=== PATIENT | female | born 1980 | race Caucasian/White ===

== ENCOUNTER 2016-11-13 21:08 | Emergency (ER) | payer OTHER ==
[2016-11-13 21:41] VITALS: BP 102/69; PULSE 87; TEMP 98.8; BMI 26.6
--- NOTE | 2016-11-13 21:42 | PDOC ---
Rapid Medical Evaluation Chief Complaint: Sore Throat Time Seen by Provider: 11/13/16 21:37 Medical Evaluation: Allergies Allergy/AdvReac Type Severity Reaction Status Date / Time Penicillins Allergy Severe Hives Verified 11/13/16 21:37 diphenhydramine HCl Allergy Rash Verified 11/13/16 21:37 [From Benadryl] 11/13/16 21:38 I have performed a brief in-person evaluation of this patient. The patient presents with a chief complaint of: throat pain, fever, left ovary pain, hx of cyst with surgery (twisted around ovary) No menses since september, Pertinent physical exam findings: vss, + erythema to throat, hx of thyroidectomy I have ordered the following: rapid strep, us , hcg urine, The patient will proceed to fast track for further evaluation.
[2016-11-13 22:00] LABS: URINE APPEARANCE CLEAR; URINE BILIRUBIN NEGATIVE (NEGATIVE); URINE BLOOD NEGATIVE (NEGATIVE); URINE COLOR LTYELLOW; URINE GLUCOSE (UA) NEGATIVE (NEGATIVE); URINE KETONE NEGATIVE (NEGATIVE); URINE LEUK ESTERASE NEGATIVE (NEGATIVE); URINE NITRITE NEGATIVE (NEGATIVE); URINE PROTEIN NEGATIVE (NEGATIVE); URINE UROBILINOGEN NEGATIVE E.U./dl (0.2-1.0)
[2016-11-13] MEDS ORDERED: AZITHROMYCIN 250 MG TABLET (FP) PO STA (22:41)
[2016-11-13] MEDS ORDERED: AZITHROMYCIN 250 MG TABLET (FP) ONE (22:52)
--- NOTE | 2016-11-13 22:52 | PDOC ---
History of Present Illness - General History Source: Patient Exam Limitations: No Limitations - History of Present Illness Initial Comments: 11/13/16 22:52 The patient is a 36 year old female with significant past medical history of hypothyroidism s/p thyroidectomy, ovarian cyst s/p surgically removed, and left torsion s/p repair who presents to the ED with several days of sore throat. Patient reports tactile fever. She also has complaints of left lower quadrant pain for the past 2 weeks. She denies vaginal bleeding or discharge. Patient also denies nausea, vomiting, or diarrhea. The patient denies chills, cough, SOB, chest pain, and palpitations. The patient denies dysuria, hematuria, urgency, and frequency. Allergies: diphenhydramine HCl, penicillin Social History: No alcohol, tobacco, or drug use reported. Past Surgical History: hypothyroidism s/p thyroidectomy, ovarian cyst s/p surgically removed, and left torsion s/p repair PCP: Dr. Kisha Girard <Lyla Live - Last Filed: 11/13/16 22:52> - General History Source: Patient <Carlos Avila - Last Filed: 11/13/16 23:39> - General Chief Complaint: Pain Stated Complaint: THROAT PAIN,PAIN LEFT OVARIES Time Seen by Provider: 11/13/16 21:37 Past History <Lyla Live - Last Filed: 11/13/16 22:52> - Past Medical History Anemia: No Asthma: No Cancer: No Cardiac Disorders: No CVA: No COPD: No CHF: No Dementia: No Diabetes: No GI Disorders: No Disorders: No HTN: No Hypercholesterolemia: No Liver Disease: No Psychiatric Problems: Yes (DEPRESSION,anxiety) Seizures: No Thyroid Disease: Yes - Surgical History Abdominal Surgery: No Appendectomy: No Cardiac Surgery: No Cholecystectomy: No Lung Surgery: No Neurologic Surgery: No Orthopedic Surgery: No - Immunization History Immunization Up to Date: Yes - Psycho/Social/Smoking Cessation Hx Anxiety: Yes Suicidal Ideation: No Smoking Status: No Smoking History: Never smoked Have you smoked in the past 12 months: No Number of Cigarettes Smoked Daily: 0 Information on smoking cessation initiated: No Hx Alcohol Use: No Drug/Substance Use Hx: No Substance Use Type: None <Carlos Avila - Last Filed: 11/13/16 23:39> - Past Medical History Allergies/Adverse Reactions: Allergies Allergy/AdvReac Type Severity Reaction Status Date / Time Penicillins Allergy Severe Hives Verified 11/13/16 21:37 diphenhydramine HCl Allergy Rash Verified 11/13/16 21:37 [From Benadryl] Home Medications: Ambulatory Orders Quetiapine Fumarate [Seroquel -] 25 mg PO HS 12/24/14 Levothyroxine [Synthroid -] 75 mcg PO DAILY 05/09/15 Hydromorphone HCl [Dilaudid] 2 mg PO QID PRN #20 tablet 05/11/15 Levothyroxine [Synthroid -] 100 mcg PO DAILY #30 tablet 05/11/15 Azithromycin [Zithromax -] 250 mg PO UTDICT #6 tab 11/13/16 Ibuprofen [Motrin] 600 mg PO TID #30 tablet 11/13/16 Review of Systems - Review of Systems Able to Perform ROS?: Yes Comments:: 11/13/16 22:52 CONSTITUTIONAL: +tactile fever Absent: no chills, no fatigue EYES: Absent: visual changes ENT: +sore throat Absent: ear pain CARDIOVASCULAR: Absent: chest pain, no palpitations RESPIRATORY: Absent: cough, no SOB GI: +left lower quadrant pain Absent: no nausea, no vomiting, no constipation, no diarrhea GENITOURINARY: Absent: dysuria, no frequency, no hematuria MUSKULOSKELETAL: Absent: back pain, no arthralgia, no myalgia SKIN: Absent: rash NEURO: Absent: headache <Bharrat,Lyla - Last Filed: 11/13/16 22:52> *Physical Exam - Vital Signs Last Vital Signs Temp Pulse Resp BP Pulse Ox 98.8 F 87 20 102/69 97 11/13/16 21:37 11/13/16 21:37 11/13/16 21:37 11/13/16 21:37 11/13/16 21:37 - Physical Exam Comments: 11/13/16 22:52 GENERAL: Well-appearing, well-nourished. No apparent distress. HEENT: Normocephalic, atraumatic. PERRL, EOM intact. Erythematous throat, no exudates or edema. CARDIOVASCULAR: Normal S1, S2. Regular rate and rhythm. PULMONARY: Clear to auscultation bilaterally. ABDOMEN: Soft, non-distended, left lower quadrant tenderness. No rebound or guarding. EXTREMITIES: Normal ROM in all four extremities. No gross deformities. SKIN: Warm, dry. No rash NEUROLOGICAL: No focal neurological deficits. <Lyla Live - Last Filed: 11/13/16 22:52> - Vital Signs Last Vital Signs Temp Pulse Resp BP Pulse Ox 98.8 F 87 20 102/69 97 11/13/16 21:37 11/13/16 21:37 11/13/16 21:37 11/13/16 21:37 11/13/16 21:37 <Carlos Avila - Last Filed: 11/13/16 23:39> ED Treatment Course - ADDITIONAL ORDERS Additional order review: Laboratory Results 11/13/16 21:45 Urine Color Ltyellow Urine Appearance Clear Urine pH 6.0 Ur Specific [place] 1.026 Urine Protein Negative Urine Glucose (UA) Negative Urine Ketones Negative Urine Blood Negative Urine Nitrite Negative Urine Bilirubin Negative Urine Urobilinogen Negative Ur Leukocyte Esterase Negative Urine HCG, Qual Negative 11/13/16 21:45 Group A Strep Rapid Antigen - Final Throat <Lyla Live - Last Filed: 11/13/16 22:52> - ADDITIONAL ORDERS Additional order review: Laboratory Results 11/13/16 21:45 Urine Color Ltyellow Urine Appearance Clear Urine pH 6.0 Ur Specific [place] 1.026 Urine Protein Negative Urine Glucose (UA) Negative Urine Ketones Negative Urine Blood Negative Urine Nitrite Negative Urine Bilirubin Negative Urine Urobilinogen Negative Ur Leukocyte Esterase Negative Urine HCG, Qual Negative 11/13/16 21:45 Group A Strep Rapid Antigen - Final Throat - RADIOLOGY Radiology Studies Ordered: Category Date Time Status TRANSVAGINAL ULTRASOUND US [US] Stat Ultrasound 11/13/16 22:37 Ordered <Carlos Avila - Last Filed: 11/13/16 23:39> Medical Decision Making - Medical Decision Making 11/13/16 23:39 Dr. Avila: The scribe's documentation has been prepared under my direction and personally reviewed by me in its entirery. I confirm that the note above accurately reflects all work, treatment, procedures, and medical decision making performed by me. <Carlos Avila - Last Filed: 11/13/16 23:39> *DC/Admit/Observation/Transfer - Attestations Scribe Attestion: 11/13/16 22:53 Documentation prepared by Lyla Live, acting as medical billing clerk for Carlos Avila MD <Lyla Live - Last Filed: 11/13/16 22:52> - Discharge Dispostion Admit: No <Carlos Avila - Last Filed: 11/13/16 23:39> Diagnosis at time of Disposition: Strep pharyngitis, Pain in pelvis - Discharge Dispostion Disposition: HOME Condition at time of disposition: Stable - Referrals Referrals: Kisha Girard MD [Primary Care Provider] - Eduardo Ortiz MD [Staff Physician] - - Patient Instructions Printed Discharge Instructions: DI for Strep Throat, DI for Pelvic Pain
== END 2016-11-13 23:46 | disposition home or self-care (01) ==
LOC: JERFT 21:08 → JER 21:08
DX: J02.0 Streptococcal pharyngitis (principal); R10.2 Pelvic and perineal pain; F41.8 Other specified anxiety disorders; E07.9 Disorder of thyroid, unspecified
CPT/HCPCS: 76830-TC; 81003; 84703; 87070; 87430; 99282-25

== ENCOUNTER 2018-05-31 18:31 | Emergency (ER) | payer OTHER ==
[2018-05-31 18:48] VITALS: BP 101/55; PULSE 78; TEMP 98.7; BMI 27.8
[2018-05-31 19:57] LABS: URINE APPEARANCE CLEAR; URINE BILIRUBIN NEGATIVE (<2.0 mg/dL); URINE COLOR LTYELLOW; URINE GLUCOSE (UA) NEGATIVE (NEGATIVE); URINE KETONE NEGATIVE (NEGATIVE); URINE LEUK ESTERASE NEGATIVE (NEGATIVE); URINE NITRITE NEGATIVE (NEGATIVE); URINE PROTEIN NEGATIVE (NEGATIVE); URINE UROBILINOGEN NEGATIVE mg/dL (0.2-1.0)
--- NOTE | 2018-05-31 20:02 | PDOC ---
Attending Attestation - Physicial Exam PE: 05/31/18 20:53 GENERAL: The patient is in no acute distress. HEAD: Normal with no signs of trauma. EYES: PERRLA, EOMI, sclera anicteric, conjunctiva clear. ENT: Ears normal, nares patent, oropharynx clear without exudates. Moist mucous membranes. NECK: Normal range of motion, supple without lymphadenopathy, JVD, or masses. LUNGS: Breath sounds equal, clear to auscultation bilaterally. No wheezes, and no crackles. HEART:Regular rate and rhythm, normal S1 and S2 without murmur, rub or gallop. ABDOMEN:(+) Lower abdominal tenderness to the L. side. Soft, normoactive bowel sounds. No guarding, no rebound. No masses palpable. EXTREMITIES: Normal range of motion, no edema. No clubbing or cyanosis. No erythema, or tenderness. NEUROLOGICAL: Cranial nerves II through XII grossly intact. Normal speech. No focal neurological deficits. MUSCULOSKELETAL: Back non-tender to palpation, no CVA tenderness SKIN: Warm, Dry, normal turgor, no rashes or lesions noted. - Medical Decision Making 05/31/18 20:54 Documentation prepared by Ya Danielson, acting as medical and health services manager for Cheyanne Simon MD. <Ya Danielson - Last Filed: 05/31/18 20:53> - Resident Resident Name: Axel Irizarry - ED Attending Attestation I have performed the following: I have examined & evaluated the patient, The case was reviewed & discussed with the resident, I agree w/resident's findings & plan, Exceptions are as noted - HPI HPI: 05/31/18 20:10 Ms Pendleton is a 37 year old female h/o hypothyroidism s/p thyroidectomy, ovarian cyst s/p removal 8 years ago , currently presenting to the ER with a complaint of left lower abdominal pain which radiates to the left flank No fevers or chills Patient denies nausea, vomit, diarrhea and constipation. Denies dysuria, frequency, urgency and hematuria. - Medical Decision Making 05/31/18 20:16 37 yo F 1st trimester abdominal pain No vaginal bleeding DD: Round ligament pain, ovarian cyst rupture/torsion, unlikely diverticulitis given no GI symptoms Will do labs Will do official US Re assess Labs wnl US IUP (+) FHR Will discharge to home Follow up with OB Clinical Impression: abdominal pain in , initial presentation <Cheyanne Simon - Last Filed: 06/02/18 07:56>
--- NOTE | 2018-05-31 20:51 | PDOC ---
History of Present Illness - General Chief Complaint: Pain, Acute Stated Complaint: STOMACH PAIN/12 WKS Time Seen by Provider: 05/31/18 18:52 History Source: Patient, Old Records Exam Limitations: No Limitations - History of Present Illness Initial Comments: 37 y/o female at 11 weeks 6 days (per LMP) presenting to [facility] ER via private auto complaining of lower left sided abdominal pain since last evening. Pain started at left flank and migrated to suprapubic area while decreasing in intensity. Denies radiation to back. Denies urinary symptoms or vaginal discharge. Does not believe she is experiencing contractions. No history of nephrolithiasis. H/o left ovarian cyst, diagnosed via ex-lap. Pt is concerned about the health of her as she experienced previous spontaneous abortions earlier than 20 weeks and intrauterine demise. Additionally, she is s/p LEEP this past February and was warned she may require a cerclage. 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) - Thyroid cyst s/p Thyroidectomy (2014) - Spontaneous and intrauterine demise Past History - Past Medical History Allergies/Adverse Reactions: Allergies Allergy/AdvReac Type Severity Reaction Status Date / Time Penicillins Allergy Severe Hives Verified 05/31/18 18:43 diphenhydramine HCl Allergy Rash Verified 05/31/18 18:43 [From Benadryl] Home Medications: Ambulatory Orders Levothyroxine [Synthroid -] 75 mcg PO DAILY 05/09/15 Vit Calc,Iron,Folic [ Vitamins] 1 each PO DAILY #30 tablet Anemia: No Asthma: No Cancer: No Cardiac Disorders: No CVA: No COPD: No CHF: No DVT: No Dementia: No Diabetes: No GI Disorders: No Disorders: No HTN: No Hypercholesterolemia: No Liver Disease: No Psychiatric Problems: Yes (DEPRESSION,anxiety) Seizures: No Thyroid Disease: Yes Other medical history: lmp 03/09/18 - Surgical History Abdominal Surgery: No Appendectomy: No Cardiac Surgery: No Cholecystectomy: No Lung Surgery: No Neurologic Surgery: No Orthopedic Surgery: No - Reproductive History Is Patient Now?: Yes (#): 6 Para: 0 Spontaneous : 5 - Immunization History Immunization Up to Date: Yes - Suicide/Smoking/Psychosocial Hx Smoking Status: No Smoking History: Never smoked Have you smoked in the past 12 months: No Number of Cigarettes Smoked Daily: 0 Hx Alcohol Use: No Drug/Substance Use Hx: No Substance Use Type: None Review of Systems - Review of Systems Able to Perform ROS?: Yes Comments:: In addition to that documented in the HPI above, the additional ROS was obtained : Constitutional: Denies fevers or chills Eyes: Denies vision changes ENMT: Denies sore throat CV: Denies chest pain Resp: Denies SOB GI: Denies vomiting or diarrhea : Denies painful urination MSK: Denies recent trauma Skin: Denies new rashes Neuro: Denies new numbness or tingling or weakness Endocrine: Denies polyuria Heme: Denies bleeding disorders *Physical Exam - Vital Signs Last Vital Signs Temp Pulse Resp BP Pulse Ox 98.7 F 78 16 101/55 L 99 05/31/18 18:44 05/31/18 18:44 05/31/18 18:44 05/31/18 18:44 05/31/18 18:44 - Physical Exam Comments: Constitutional: Well-developed, well-nourished female in no acute distress or obvious discomfort. Found sitting upright on hospital bed. Alert and oriented x4. Answered all questions appropriately and completely. Speech was non-labored , non-pressured. HEENT: Normocephalic. No obvious external signs of trauma. Hearing grossly normal. No nasal discharge. Neck is supple, trachea is midline. Cardiovascular: Regular rate and regular rhythm. No murmur, rubs, clicks, or gallops. Peripheral pulses: Radial pulses full. Respiratory: Breathing unlabored. Equal chest rise and fall. Clear to auscultation bilaterally. No stridor, no wheezing, no rhonchi. Gastrointestinal: gravid abdomen is tender in suprapubic region with grimace but no rebound, guarding, or withdrawal; otherwise soft and non-distended. No pulsatile masses. No overlying skin lesions or obvious signs of trauma. Neuro: Alert and oriented. Moving all four extremities spontaneously. Gait normal; observed walking unassisted through the department without distress. Skin: Warm, dry, and intact. No bruising, rashes, or other lesions. No palpable nodules. Lymphatics: No cervical, supraclavicular, epitrochlear or inguinal nodes palpated. : No R or L CVA tenderness. Psych: Affect: appropriate. Mood: normal. Female Pelvic: External genitalia unremarkable. Speculum exam with normal appearing whitish vaginal discharge. Vaginal wall mucosa is unremarkable. Cervix visualized and is unremarkable (closed in appearance without any protruding material). Bimanual exam revealed L adnexal tenderness without cervical motion tenderness or any masses appreciated. OS closed. RN chaperoned exam. ED Treatment Course - ADDITIONAL ORDERS Additional order review: Laboratory Results 05/31/18 05/31/18 19:30 19:30 Urine Color Ltyellow Urine Appearance Clear Urine pH 5.0 D Ur Specific [place] 1.023 Urine Protein Negative Urine Glucose (UA) Negative Urine Ketones Negative Urine Blood Negative Urine Nitrite Negative Urine Bilirubin Negative Urine Urobilinogen Negative Ur Leukocyte Esterase Negative Urine HCG, Qual Positive - RADIOLOGY Radiology Studies Ordered: Category Date Time Status <14WKS US [US] Stat Ultrasound 05/31/18 19:34 Ordered Radiograph Interpretation: U/S Ugo Aiken MD wrote on May 31, 2018 at 10:47 PM: Referring Physician: BISHOP KAUR Patient Name: PERNELL JOHNSON THIS IS A PRELIMINARY REPORT FROM [facility] TECHNOLOGIST EXAM: Ob Ultrasound < 14 wks single fetus IMAGES: 35 EXAM DATE AND TIME: 2018-05-31 20:10:09 HISTORY: 37 year-old woman with a single having an estimated gestational age, based on LMP, of 11 weeks 6 days. Left flank pain. History of left ovarian cyst. COMPARISON: None FINDINGS: There is a single intrauterine , with visualization of pole, yolk sac, movement, and cardiac activity with a heart rate of 124-136 bpm. The yolk sac measures 6 mm. The crown rump length corresponds to gestational age of 11 weeks 1 day. The gestational sac size corresponds to a age of 11 weeks 1 day. The {average uterine age (AUA)\F\gestational age} is 11 weeks 1 day. SIM (AUA) = 12/19/2018. The uterus measures { \F\(TrAb):\F\(TrVg):} 5 x 7.6 x 9.4 cm. Ovaries are not detected. There is no free fluid within the posterior cul-de-sac. IMPRESSION: Normal single intrauterine with an average uterine age ( AUA) of 11 weeks 1 day and a heart rate of 124-136 BPM. Normal study. . THIS DOCUMENT HAS BEEN ELECTRONICALLY SIGNED Ugo Aiken MD. 05/31/2018 22:47 EST Medical Decision Making - Medical Decision Making *Reviewed vital signs, nursing notes, and prior visit documentation (if available). 37 y/o female complaining of improving left flank and LLQ abdominal pain. No urinary symptoms. H/o left ovarian cyst. Afebrile. Vitals unremarkable. D/D: Ovarian cyst, ovarian torsion, uterine contraction, threatened , ectopic , nephrolithiasis, and cystitis. Will obtain UA, urine culture , UPeg, and U/S to further evaluate. POCUS Transabdominal U/S: IUP with heart rate observed with rate of approx. 110 bpm. Awaiting formal u/s. UA unremarkable for pyuria, leukocyte esterase, or nitrites. Low suspicion for UTI. Culture pending. UPreg positive, as expected. U/S revealed unremarkable IUP with normal HR. Ovaries were not visualized but there was no free fluid in the pelvis. Continue to suspect ovarian cyst as source of pain; low suspicion for rupture without free fluid. Discussed imaging and laboratory results with pt. Discussed limitations of ultrasound as ovaries were not visualized but low likelihood for rupture. Answered all questions. Provided strict return precautions. Pt expressed verbal understanding and agreement with plan to discharge home with outpatient OBGYN follow up. Provided copy of results. *DC/Admit/Observation/Transfer Diagnosis at time of Disposition: Pain in pelvis Qualifiers: Weeks of gestation: 11 weeks Qualified Code(s): Z3A.11 - 11 weeks gestation of - Discharge Dispostion Disposition: HOME Condition at time of disposition: Good Decision to Admit order: No - Referrals Referrals: Danna Reyes [Primary Care Provider] - - Patient Instructions Printed Discharge Instructions: DI for Ovarian Cyst, DI for Pelvic Pain Additional Instructions: Your ultrasound and urine results are normal. Your is estimated to be at 11 weeks and 1 day. Your pain is likely related to the ovarian cyst you reported. The ovaries were not visualized on the ultrasound. Follow up with your OBGYN with in the next 2-3 days. You will need to call to make an appointment. I have attached the results of today's visit to this packet. Take it with you so your doctor can review them. Go to the nearest emergency department if your symptoms worsen or you feel like you need additional emergency evaluation. Print Language: SLOVAK - Post Discharge Activity
== END 2018-05-31 23:03 | disposition home or self-care (01) ==
LOC: JER 18:31
DX: O26.891 Other specified pregnancy related conditions, first trimester (principal); R10.2 Pelvic and perineal pain; O99.281 Endocrine, nutritional and metabolic diseases complicating pregnancy, first trimester; E89.0 Postprocedural hypothyroidism; Z3A.11 11 weeks gestation of pregnancy
CPT/HCPCS: 76801-TC; 81003; 84703; 87086; 99281-25

== ENCOUNTER 2018-07-05 17:43 | Emergency (ER) | payer OTHER ==
[2018-07-05 17:50] VITALS: BP 103/53; PULSE 90; TEMP 98; BMI 27.6
--- NOTE | 2018-07-05 18:21 | PDOC ---
Attending Attestation - Resident Resident Name: BrisaCarmeloNallely - ED Attending Attestation I have performed the following: I have examined & evaluated the patient, The case was reviewed & discussed with the resident, I agree w/resident's findings & plan, Exceptions are as noted - HPI HPI: 07/05/18 18:16 Ms Pendleton is a 37 yo F h/o hypothyroidism s/p thyroidectomy, ovarian cyst s/p removal 8 years ago, and cervix removal in December due to abnormal pap smear. She is currently approximately 16 weeks and presents to the ER with a complaint of vaginal bleeding - Physicial Exam PE: 07/05/18 18:18 GENERAL: The patient is in no acute distress. LUNGS: Breath sounds equal, clear to auscultation bilaterally. No wheezes, and no crackles. HEART:Regular rate and rhythm, normal S1 and S2 without murmur, rub or gallop. ABDOMEN: Soft, nontender, normoactive bowel sounds. No guarding, no rebound. No masses palpable. PATENT LEATHER SORTER: pelvic examination deferred EXTREMITIES: Normal range of motion, no edema NEUROLOGICAL: Cranial nerves II through XII grossly intact. Normal speech. No focal neurological deficits. MUSCULOSKELETAL: Back non-tender to palpation, no CVA tenderness SKIN: Warm, Dry, normal turgor, no rashes or lesions noted. - Medical Decision Making 07/05/18 20:46 37 yo approximately 16 weeks presenting with vaginal bleeding U/S demonstrates: There is a single live intrauterine with estimated gestational age of 16 weeks and 3 days. heart rate is 146 bpm. position at this time is breech. There is a posterior placenta. There is no placenta previa. 07/05/18 20:47 Laboratory Tests 07/05/18 07/05/18 07/05/18 18:30 19:06 19:06 WBC 6.9 Hgb 12.8 Hct 38.9 Plt Count 232 Urine Nitrite Negative Ur Leukocyte Esterase 2+ H Urine WBC (Auto) 9 Urine RBC (Auto) 3 Blood Type O POSITIVE D/c home Follow up with [facility] (already scheduled for Saturday, 3 days from now)
[2018-07-05 19:14] LABS: URINE APPEARANCE CLEAR; URINE BILIRUBIN NEGATIVE (<2.0 mg/dL); URINE COLOR LTYELLOW; URINE GLUCOSE (UA) NEGATIVE (NEGATIVE); URINE KETONE NEGATIVE (NEGATIVE); URINE LEUK ESTERASE 2+ (NEGATIVE); URINE NITRITE NEGATIVE (NEGATIVE); URINE PROTEIN NEGATIVE (NEGATIVE); URINE UROBILINOGEN NEGATIVE mg/dL (0.2-1.0)
[2018-07-05 19:20] LABS: EPI CELLS FEW /HPF (FEW); URINE MUCUS RARE
[2018-07-05 19:26] LABS: BASO % 0.4 % (0-2.0); EOS % 1.2 % (0-4.5); HEMATOCRIT 38.9 % (32.4-45.2); HEMOGLOBIN 12.8 GM/dL (10.7-15.3); LYMPH % 30.6 % (8-40); MCH 28.5 pg (25.7-33.7); MEAN CELL VOLUME 86.4 fl (80-96); MEAN PLT VOLUME 9.8 fl (7.5-11.1); MONO % 5.7 % (3.8-10.2); NEUT % 62.1 % (42.8-82.8); PLATELET COUNT 232 K/MM3 (134-434); RBC 4.51 M/mm3 (3.60-5.2); RDW 13.7 % (11.6-15.6); WHITE BLOOD COUNT 6.9 K/mm3 (4.0-10.0)
--- NOTE | 2018-07-05 19:45 | PDOC ---
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 Bleeding is scant, noted as pink in the toilet bowl and seen upon wiping, noticed when the patient urinated about an hour prior to arrival. Patient reports cramping she has had throughout her . She has not felt contractions. Last saw her food and nutrition supervisor doctor earlier this month. thus far has been without complications. History of demise at 12 weeks. Patient has nausea and vomiting which she attributes to morning sickness. No dysuria, hematuria, frequency, or urgency. Denies fever, chills, chest pain, or shortness of breath. Past History - Past Medical History Allergies/Adverse Reactions: Allergies Allergy/AdvReac Type Severity Reaction Status Date / Time Penicillins Allergy Severe Hives Verified 07/05/18 17:47 diphenhydramine HCl Allergy Rash Verified 07/05/18 17:47 [From Benadryl] Home Medications: Ambulatory Orders Levothyroxine [Synthroid -] 75 mcg PO DAILY 05/09/15 Nitrofurantoin Macrocrystal [Nitrofurantoin] 100 mg PO BID #14 capsule 07/05/18 Anemia: No Asthma: No Cancer: No Cardiac Disorders: No CVA: No COPD: No CHF: No DVT: No Dementia: No Diabetes: No GI Disorders: No Disorders: No HTN: No Hypercholesterolemia: No Liver Disease: No Psychiatric Problems: Yes (DEPRESSION,anxiety) Seizures: No Thyroid Disease: Yes - Surgical History Abdominal Surgery: No Appendectomy: No Cardiac Surgery: No Cholecystectomy: No Lung Surgery: No Neurologic Surgery: No Orthopedic Surgery: No - Reproductive History Is Patient Now?: Yes (#): 4 Para: 0 Cervical CA: No Dysfunctional Uterine Bleeding: No Ectopic : No Endometrial CA: No Polycystic Ovaries: No Therapeutic (s) & number: Yes (2) Tubal Ligation: No Spontaneous : 1 - Immunization History Immunization Up to Date: Yes - Suicide/Smoking/Psychosocial Hx Smoking Status: No Smoking History: Never smoked Have you smoked in the past 12 months: No Number of Cigarettes Smoked Daily: 0 Information on smoking cessation initiated: No Hx Alcohol Use: No Drug/Substance Use Hx: No Substance Use Type: None Review of Systems - Review of Systems Comments:: Constitutional: no fever, no chills HEENT: no throat pain, no dysphagia Cardiovascular: no chest pain, no palpitations Respiratory: no cough, no shortness of breath Gastrointestinal: +abdominal cramping, +nausea, +vomiting, no diarrhea, no constipation Genitourinary: no dysuria, no frequency Musculoskeletal: no myalgia, no arthralgia Skin: no rash, no itching Neurologic: no headache, no dizziness *Physical Exam - Vital Signs Last Vital Signs Temp Pulse Resp BP Pulse Ox 98.0 F 90 18 103/53 L 100 07/05/18 17:48 07/05/18 17:48 07/05/18 17:48 07/05/18 17:48 07/05/18 17:48 - Physical Exam Comments: General: Awake, alert, and fully oriented, in no acute distress Head: no signs of trauma Eyes: EOMI, sclera anicteric ENT: Moist mucus membranes Neck: Normal ROM, supple Lungs: Lungs clear, Normal breath sounds Cardio: Regular rhythm, S1 and S2 present Abdomen: Soft, nontender. No guarding, no rebound, no masses; gravid abdomen below the umbilicus Extremities: Normal range of motion, Distal pulses present SKIN: Warm, Dry, normal turgor Neurologic: Cranial nerves II through XII grossly intact. Normal speech ED Treatment Course - LABORATORY CBC & Chemistry Diagram: 07/05/18 19:06 07/05/18 19:06 - ADDITIONAL ORDERS Additional order review: Laboratory Results 07/05/18 18:30 Urine Color Ltyellow Urine Appearance Clear Urine pH 6.0 Ur Specific [place] 1.024 Urine Protein Negative Urine Glucose (UA) Negative Urine Ketones Negative Urine Blood Negative Urine Nitrite Negative Urine Bilirubin Negative Urine Urobilinogen Negative Ur Leukocyte Esterase 2+ H Urine WBC (Auto) 9 Urine RBC (Auto) 3 Ur Epithelial Cells Few Urine Mucus Rare 07/05/18 19:06 RBC 4.51 MCV 86.4 MCHC 33.0 RDW 13.7 MPV 9.8 Neutrophils % 62.1 Lymphocytes % 30.6 Monocytes % 5.7 Eosinophils % 1.2 Basophils % 0.4 Medical Decision Making - Medical Decision Making 37yo F A4 with history of hypothyroid s/p thyroidectomy, ovarian cyst s/p removal 8 years ago, 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 -DDX includes but not limited to threatened , ectopic , subchorionic hemorrhage. -Workup will include CBC, Type and Screen, UA, Urine Culture, Ultrasound. Pelvic exam deferred at this time to avoid risk of aggravation of potential placenta previa, etc. -US negative for acute pathology. IUP confirmed with heartbeat. -No leukocytosis or anemia; normal electrolyte panel -UA positive for 9 WBCs and 2+leuks, ordered nitrofurantoin and sent prescription to pharmacy to treat for asymptomatic bacteriuria -Patient will follow-up with her food and nutrition supervisor physician on Saturday *DC/Admit/Observation/Transfer Diagnosis at time of Disposition: Vaginal bleeding in patient at less than 20 weeks gestation - Discharge Dispostion Disposition: HOME Condition at time of disposition: Stable - Prescriptions Prescriptions: Nitrofurantoin Macrocrystal [Nitrofurantoin] 100 mg PO BID #14 capsule - Referrals Referrals: Danna Reyes [Primary Care Provider] - Marium Rojas MD [Non Staff, Medical] - - Patient Instructions Printed Discharge Instructions: DI for Vaginal Bleeding During Additional Instructions: You were seen in the Emergency Department for vaginal spotting. Blood work was normal. Urinalysis showed that you have a urinary tract infection. Ultrasound confirmed the with a normal heartbeat. Prescription sent to your pharmacy. Follow-up with your food and nutrition supervisor at your follow-up appointment on Saturday. Return to the Emergency Department if you experience: -heavy bleeding (more than two pads per hour for two hours) -severe pain -lightheadedness -shortness of breath -high fever -any other concerning symptoms - Post Discharge Activity
[2018-07-05 19:50] LABS: ALBUMIN 3.3 g/dl (3.4-5.0); ALK PHOS 80 U/L (45-117); ANION GAP 10 MMOL/L (8-16); BILIRUBIN,TOTAL 0.3 mg/dL (0.2-1); BLOOD UREA NITROGEN 11 mg/dL (7-18); CALCIUM 8.6 mg/dL (8.5-10.1); CHLORIDE 107 mmol/L (98-107); CO2 22 mmol/L (21-32); CREATININE 0.6 mg/dL (0.55-1.3); GLUCOSE,RANDOM 87 mg/dL (74-106); POTASSIUM 3.9 mmol/L (3.5-5.1); SGOT/AST 16 U/L (15-37); SGPT/ALT 33 U/L (13-61); SODIUM 139 mmol/L (136-145); TOT PROT 7.2 g/dl (6.4-8.2)
[2018-07-05] MEDS ORDERED: NITROFURANTOIN MACROCRYSTAL 50 MG CAPSULE (FP) ONE (20:41)
[2018-07-05] MEDS ORDERED: NITROFURANTOIN MACROCRYSTAL 50 MG CAPSULE (FP) PO SCH (20:45)
== END 2018-07-05 21:45 | disposition home or self-care (01) ==
LOC: JER 17:43
DX: O26.892 Other specified pregnancy related conditions, second trimester (principal); O46.91 Antepartum hemorrhage, unspecified, first trimester; Z3A.16 16 weeks gestation of pregnancy; O99.282 Endocrine, nutritional and metabolic diseases complicating pregnancy, second trimester; E89.0 Postprocedural hypothyroidism
CPT/HCPCS: 36415; 76815-TC; 80053; 81003; 81015; 85025; 86850; 86900; 86901; 87086; 99282-25